=== PATIENT | male | born 1965 | race Caucasian/White ===

== ENCOUNTER → 2023-09-24 14:30 | Outpatient (REF) | payer OTHER, SELFPAY | LOC: RAD 14:30 | PROVIDERS: ATTENDING PHYSICIAN Nurse Practitioner; FAMILY PHYSICIAN Internal Medicine | DX: R10.31 Right lower quadrant pain (principal) | CPT/HCPCS: 76870; 93976 ==

== ENCOUNTER → 2025-05-04 15:50 | Outpatient (REF) | payer OTHER, SELFPAY | LOC: RAD 15:50 | PROVIDERS: ATTENDING PHYSICIAN Internal Medicine | DX: M54.2 Cervicalgia (principal) | CPT/HCPCS: 72040 ==